=== PATIENT | male | born 1960 | race Caucasian/White ===

== ENCOUNTER → 2018-06-15 | Outpatient (CLI) | payer OTHER, SELFPAY ==
--- NOTE | 2018-06-15 13:50 | CT_ITS ---
STUDY: LOW DOSE CT LUNG CANCER SCREENING REASON FOR EXAM: Male, 58 years old. Current smoker. 80 pack-year smoking history. RADIATION DOSAGE (If Supplied By Facility): CTDIvol = ( 2.55 ) mGy, DLP = ( 88.69 ) mGycm TECHNIQUE: No contrast was administered. Low dose technique was utilized (average mAS-38 and kVp 120). 1.25 mm axial source images with a slice interval of 1.25-mm were reconstructed in lung windows. 2.5 mm axial source images with a slice interval of 2.5-mm were reconstructed in lung windows. 5.0 mm axial source images with a slice interval of 5.0-mm were reconstructed in soft tissue windows. Nodule measured using lung windows on PACS and/or independent workstation with automated measurement of minimum and maximum diameter. Nodule measurement reported as average diameter rounded to the nearest whole number. Growth is defined as an increase ins size of greater than 1.5 mm. COMPARISON: Chest, March 16, 2016. NODULES: Nodule #: 1 Density: Solid Lung location: Right upper lobe: 0.5 cm from pleura Location in series: Series Number: [id number] Image: 103 Size - D1 x D2 mm: 2 x 2 mm: 2 mm average diameter Margin: Smooth Shape: Rounded Calcification: Yes Fat: No Temporal comparison: No Total lung nodules (excluding granulomas): 0 Emphysema: There is mild diffuse emphysematous changes of the lungs. Endobronchial lesion: None Aorta: Minimal atherosclerotic changes of the thoracic aorta without aneurysm. Coronary arteries: There are coronary artery calcifications. Heart: Normal in size Pulmonary artery: Normal Mediastinal nodes: Not Other chest and abdominal findings: Minimal degenerative changes of the thoracic spine. CT/Low Dose CT Lung Screening IMPRESSION: Lung-RADS category 1 - Continue annual screening with LDCT in 12 months. IMPORTANT NOTES FOR USE: ACR Lung-RADS Version 1.0 Assessment Categories Release Date: June 25, 2013 Category: Coded 0-4 bases on nodule(s) with highest degree of suspicion. Negative screen is defined as categories 1 and 2; a positive screen is defined as categories 3 and 4. Category 3 and 4A nodules that are unchanged on interval CT should be coded as category 2, and individuals returned to screening in 12 months. Category 4X: Category 3 or 4 nodules with additional imaging findings that increase the suspicion of lung cancer, such as spiculation, GGN that doubles in size in 1 year, enlarged lymph notes, etc. Category Modifiers: S (significant finding unrelated to lung cancer) and C (prior history of treated lung cancer) may be added to the 0-4 Lung-RADS Electronically Signed: Elmer Mejía DO at 18:26 EDT Tel [phone], Service support ,
== END | disposition home or self-care (01) ==
LOC: CT 14:51
PROVIDERS: Family Provider Nurse Practitioner Family; PCP Nurse Practitioner Family; Referring Provider Nurse Practitioner Family; Visit Provider Nurse Practitioner Family
DX: Z12.2 Encounter for screening for malignant neoplasm of respiratory organs (principal); Z72.0 Tobacco use
CPT/HCPCS: G0297

== ENCOUNTER → 2018-07-11 16:50 | Outpatient (CLI) | payer OTHER, SELFPAY ==
--- NOTE | 2018-07-11 16:52 | CT_ITS ---
STUDY: CT SOFT TISSUE NECK WITH CONTRAST REASON FOR EXAM: Male, 58 years old. Two-month history of left sided neck pain. RADIATION DOSAGE (If Supplied By Facility): CTDIvol = ( 21.92 ) mGy, DLP = ( 711.51 ) mGycm TECHNIQUE: The patient was scanned in a multi-detector CT scanner. High resolution transaxial imaging was performed following intravenous administration of 100 IV Isovue 300. Sagittal and coronal images were reconstructed. Individualized dose optimization techniques were used for this CT. COMPARISON: None. FINDINGS: Normal bilateral parotid glands. Normal bilateral strip cleaner spaces. Normal bilateral parapharyngeal spaces. Normal bilateral carotid spaces. Normal bilateral sublingual and submandibular glands and spaces. Normal visualized nasopharynx. Normal retropharyngeal space. Normal perivertebral space. Normal visualized bilateral faucial tonsils. The visualized tongue, tongue base and oropharynx are normal. The visualized cervical lymph nodes (levels I-) are within normal size limits, and maintain normal morphology. There is no demonstrated solid or cystic mass lesion. There is no abnormal contrast enhancement. Normal epiglottis, bilateral vallecula and hypopharynx. The pre-epiglottic and paraglottic adipose spaces are normal. Normal visualized bilateral piriform sinuses, aryepiglottic folds, vocal cords, and arytenoid-cricoid articulations. Normal subglottic trachea. There is a 7.8 mm well-defined hypodensity in the midportion of the right lobe of the thyroid. This may represent a small colloid cyst. Normal visualized pulmonary apices. Opacification of the right maxillary sinus. Mucosal thickening along the inferior posterior aspect of the left maxillary sinus. There is multilevel degenerative changes of the cervical spine. CT/Soft Tissue Neck WITH Contrast IMPRESSION: 7.8 mm well-defined hypodensity in the right lobe of thyroid. No other abnormality is seen. Electronically Signed: Arnav Lemus, at 9:05 EDT , Service support ,
[2018-07-11 17:20] LABS: CREATININE FINGERSTICK 0.9 mg/dL (0.70-1.30); EGFR FINGERSTICK > 60.0000 mL/min (>60)
== END ==
PROVIDERS: Family Provider Nurse Practitioner Family; PCP Nurse Practitioner Family; Referring Provider Otolaryngology Otolaryngology/Facial Plastic Surgery; Visit Provider Otolaryngology Otolaryngology/Facial Plastic Surgery
DX: M54.2 Cervicalgia (principal)
CPT/HCPCS: 70491; Q9967

== ENCOUNTER → 2018-12-15 | Outpatient (CLI) | payer OTHER, SELFPAY ==
--- NOTE | 2018-12-15 16:57 | CT_ITS ---
STUDY: CT CHEST WITHOUT CONTRAST REASON FOR EXAM: Male, 58 years old. Lung nodule follow-up RADIATION DOSAGE (If Supplied By Facility): CTDIvol = ( 11.86 ) mGy, DLP = ( 465.12 ) mGycm TECHNIQUE: Transaxial imaging was performed without the administration of intravenous contrast material. Multiplanar coronal and sagittal images were reformatted. Individualized dose optimization techniques were used for this CT. COMPARISON: 06/15/2018 FINDINGS: 2 mm nodule in the anterior right upper lobe is stable since prior low-dose CT. No new pulmonary nodule. No localized groundglass opacities or groundglass opacity nodules. There is a nodule of the right thyroid lobe measuring 11 mm, grossly similar. There is no demonstrated pleural abnormality. Normal heart and pericardium. There are calcifications of the coronary arteries. Normal mediastinum. Normal hilar regions. Normal unenhanced pulmonary arteries. There is atherosclerotic calcification of the aortic arch with tortuosity and elongation of the aortic arch and descending thoracic aorta. There are multi-level degenerative changes of the thoracic spine. There is no demonstrated abnormality of the visualized upper abdomen. CT/Chest without Contrast IMPRESSION: 1. Stable 2 mm nodule in the right upper lobe. No new or enlarging pulmonary nodule. 2. An 11 mm right thyroid lobe nodules is grossly similar although better seen on the current exam. 3. Atherosclerosis including coronary arteries. Electronically Signed: Raul Beckford MD ([facility]) at 17:34 EDT , Service support ,
== END | disposition home or self-care (01) ==
LOC: CT 16:55
PROVIDERS: Family Provider Nurse Practitioner Family; PCP Nurse Practitioner Family; Referring Provider Internal Medicine Pulmonary Disease; Visit Provider Internal Medicine Pulmonary Disease
DX: R91.1 Solitary pulmonary nodule (principal)
CPT/HCPCS: 71250

== ENCOUNTER → 2019-01-17 09:55 | Outpatient (CLI) | payer OTHER, SELFPAY ==
--- NOTE | 2019-01-17 09:59 | NM_ITS ---
CLINICAL: 58-year-old male with history of thyroid nodularity. I-123 THYROID UPTAKE and SCAN COMPARISON: CT of the soft tissue neck report 07/11/2018 FINDINGS: The patient was administered a 290 uCi I-123 capsule by mouth. The 4-hour I-123 radioactive iodine thyroidal uptake was calculated to be 11.3 % (normal 5 to 25 %). The 24-hour I-123 radioactive iodine thyroidal uptake was calculated to be 26.5 % (normal 5 to 40 %). The I-123 thyroid scan demonstrates homogeneous radiopharmaceutical concentration throughout both lobes of a U-shaped thyroid gland. There are no colloidal parenchymal hypofunctioning cold nodules noted in either lobe of the thyroid gland. NM/Thyroid Uptake Single or Mult IMPRESSION: 1. NORMAL 4- and 24-hour I-123 radioactive iodine thyroidal uptakes. 2. The I-123 thyroid scan is consistent with stage I nodular colloid goiter secondary to the presence of isthmus radiopharmaceutical concentration. (Ana et al, J Nucl Med 32: 1455, 1990). 3. No hypofunctioning-cold nodules are identified. Electronically Signed: Quinton Hernández DO at 23:04 EST Tel , Service support ,
== END ==
PROVIDERS: Family Provider Nurse Practitioner Family; PCP Nurse Practitioner Family; Referring Provider Nurse Practitioner Family; Visit Provider Nurse Practitioner Family
DX: E04.1 Nontoxic single thyroid nodule (principal)
CPT/HCPCS: 78012; A9516

== ENCOUNTER → 2019-07-02 | Outpatient (CLI) | payer OTHER, SELFPAY ==
--- NOTE | 2019-07-02 10:30 | US_ITS ---
STUDY: THYROID ULTRASOUND REASON FOR EXAM: Male, 59 years old. NODULE SEEN ON RECENT CT TECHNIQUE: Ultrasound evaluation of the thyroid was performed with real-time and static payton-scale imaging. COMPARISON: Comparison is made with prior CT scan of the thorax dated December 15, 2018. FINDINGS: RIGHT LOBE: The right lobe of the thyroid gland is slightly enlarged and measures 5.1 cm x 2 cm x 2.2 cm. There is a homogeneous echotexture. 3 subcentimeters nodules are seen. The largest measures 9 mm x 8 mm x 6 mm. This is in the midportion of the lobe. Debris is seen within it. LEFT LOBE: The left lobe of the thyroid gland measures 4.6 cm x 1.6 x 1.2 cm. There is a homogeneous echotexture. There is a 3 mm x 2 mm x 3 mm solid/cystic nodule in the midpole. ISTHMUS: The isthmus measures 5.0 mm. The regional lymph nodes are normal. Incidental note is seen of bilateral carotid artery calcification. US/Thyroid IMPRESSION: Mild enlargement of the right lobe of the thyroid with the 3 subcentimeters nodules. The largest measuring 9 mm x 8 mm x 6 mm. This is a cyst with debris within. 3 mm x 3 mm x 2 mm solid/cystic nodule in the midportion of the left lobe of the thyroid. Electronically Signed: Arnav Lemus, at 11:15 EDT , Service support ,
== END | disposition home or self-care (01) ==
LOC: US 10:29
PROVIDERS: Family Provider Nurse Practitioner Family; PCP Nurse Practitioner Family; Referring Provider Nurse Practitioner Family; Visit Provider Nurse Practitioner Family
DX: E04.1 Nontoxic single thyroid nodule (principal)
CPT/HCPCS: 76536

== ENCOUNTER → 2019-07-20 10:50 | Outpatient (CLI) | payer OTHER, SELFPAY ==
[2019-07-20 11:59] LABS: T4 Free Direct 0.91 ng/dL (0.76-1.46); Thyroid Stim Hormone (TSH) 1.07 uIU/mL (0.358-3.74)
== END ==
LOC: LAB 10:53
PROVIDERS: PCP Nurse Practitioner Family; Referring Provider Nurse Practitioner Family; Visit Provider Nurse Practitioner Family
DX: E04.1 Nontoxic single thyroid nodule (principal)
CPT/HCPCS: 36415; 84439; 84443

== ENCOUNTER → 2019-12-17 | Outpatient (CLI) | payer OTHER, SELFPAY ==
--- NOTE | 2019-12-17 13:02 | CT_ITS ---
STUDY: LOW DOSE CT LUNG CANCER SCREENING REASON FOR EXAM: Male, 59 years old. Long history of smoking. Screening for lung cancer. RADIATION DOSAGE (If Supplied By Facility): CTDIvol = ( 3.02 ) mGy, DLP = ( 111.74 ) mGycm TECHNIQUE: No contrast was administered. Low dose technique was utilized (average mAS-38 and kVp 120). 1.25 mm axial source images with a slice interval of 1.25-mm were reconstructed in lung windows. 2.5 mm axial source images with a slice interval of 2.5-mm were reconstructed in lung windows. 5.0 mm axial source images with a slice interval of 5.0-mm were reconstructed in soft tissue windows. Nodule measured using lung windows on PACS and/or independent workstation with automated measurement of minimum and maximum diameter. Nodule measurement reported as average diameter rounded to the nearest whole number. Growth is defined as an increase ins size of greater than 1.5 mm. COMPARISON: None. NODULES: Stable 2 mm nodule in the right upper lobe. No new or enlarging pulmonary nodule. Stable 11 mm right thyroid lobe nodule is grossly similar although better seen on the current exam. There is hyperinflation of the lungs consistent with chronic obstructive lung disease (COPD). There is no demonstrated pleural abnormality. Normal heart and pericardium. Normal mediastinum. Normal hilar regions. Normal unenhanced pulmonary arteries. Normal aorta arch and descending thoracic aorta. Normal osseous structures. There is no demonstrated abnormality of the visualized upper abdomen. CT/Low Dose CT Lung Screening IMPRESSION: Lung-RADS category 2. Benign findings. No evidence of malignancy. Recommendation: Routine screening CT scan in one year. IMPORTANT NOTES FOR USE: ACR Lung-RADS Version 1.0 Assessment Categories Release Date: June 25, 2013 Category: Coded 0-4 bases on nodule(s) with highest degree of suspicion. Negative screen is defined as categories 1 and 2; a positive screen is defined as categories 3 and 4. Category 3 and 4A nodules that are unchanged on interval CT should be coded as category 2, and individuals returned to screening in 12 months. Category 4X: Category 3 or 4 nodules with additional imaging findings that increase the suspicion of lung cancer, such as spiculation, GGN that doubles in size in 1 year, enlarged lymph notes, etc. Category Modifiers: S (significant finding unrelated to lung cancer) and C (prior history of treated lung cancer) may be added to the 0-4 Lung-RADS Electronically Signed: Kaci Hawkins, at 4:39 EDT Tel , Service support ,
== END | disposition home or self-care (01) ==
LOC: CT 12:57
PROVIDERS: Family Provider Nurse Practitioner Family; PCP Nurse Practitioner Family; Referring Provider Internal Medicine Pulmonary Disease; Visit Provider Internal Medicine Pulmonary Disease
DX: R91.1 Solitary pulmonary nodule (principal); Z87.891 Personal history of nicotine dependence; Z12.2 Encounter for screening for malignant neoplasm of respiratory organs
CPT/HCPCS: G0297

== ENCOUNTER → 2020-01-04 14:55 | Outpatient (CLI) | payer OTHER, SELFPAY ==
--- NOTE | 2020-01-04 14:59 | US_ITS ---
STUDY: THYROID ULTRASOUND REASON FOR EXAM: Male, 59 years old. F/U NODULES TECHNIQUE: Ultrasound evaluation of the thyroid was performed with real-time and static payton-scale imaging. COMPARISON: 07/02/2019 FINDINGS: RIGHT LOBE: The right lobe of the thyroid gland measures 5.1 x 2 x 2.2 cm. There is a heterogeneous echotexture. There is a mixed cystic solid nodule in the mid pole measuring 1 x 0.9 x 0.7 cm demonstrating intranodular vascularity. There is a second solid hypoechoic nodule in the mid pole measuring 2.06 x 0.6 x 0.6 demonstrating. perinodular vascularity. LEFT LOBE: The left lobe of the thyroid gland measures 4.4 x 1.3 x 1.8 cm. There is a heterogeneous echotexture. There are no demonstrated solid, cystic or complex lesions. ISTHMUS: The isthmus measures 5 mm . The regional lymph nodes are normal. Previously noted third nodule in the right lobe on prior exam is not clearly identified on this current study nor is the previously noted tiny nodule in the left lobe. The 2 nodules in the right lobe on current exam are relatively stable since previous study US/Thyroid IMPRESSION: Stable appearance to 2 right lobar nodules. No new nodules identified Electronically Signed: Elton Kiran MD at 15:52 EST , Service support ,
== END ==
PROVIDERS: PCP Nurse Practitioner Family; Referring Provider Nurse Practitioner Family; Visit Provider Nurse Practitioner Family
DX: E04.1 Nontoxic single thyroid nodule (principal)
CPT/HCPCS: 76536

== ENCOUNTER → 2020-01-25 09:24 | Outpatient (CLI) | payer OTHER, SELFPAY ==
[2020-01-25 10:45] LABS: Hematocrit 40.7 % (40-54); Hemoglobin 13.5 g/dL (13.0-16.5); Mean Corp Hgb Conc 33.2 g/dL (32-36); Mean Corpuscular Hgb 31.8 pg (27.0-32.0); Mean Corpuscular Volume 95.8 fL (80-94); Mean Platelet Vol. 8.1 fl (6.2-12.0); Platelet Count 368 K/mm3 (150-450); RBC Distribution Width CV 13.9 % (11.6-14.6); RBC Distribution Width SD 49.3 fl (35.1-43.9); Red Blood Count 4.25 M/mm3 (4.6-6.2); White Blood Count 9.9 K/mm3 (4.4-11.0)
[2020-01-25 11:09] LABS: Hemoglobin A1c 5.3 % (3.8-5.6)
[2020-01-25 11:24] LABS: AST(SGOT) 27 U/L (15-37); Alanine Aminotransfer ALT/SGPT 36 U/L (16-61); Albumin, Serum 3.8 g/dL (3.2-5.0); Alkaline Phosphatase 81 U/L (45-117); Anion Gap 5 (5-15); BUN 18 mg/dL (7-18); BUN/Creat Ratio 20.5 RATIO (10-20); Calcium,Total 8.8 mg/dL (8.5-10.1); Chloride 98 mmol/L (98-107); Cholesterol 138 mg/dL (200); Creatinine, Serum 0.88 mg/dL (0.70-1.30); EST Glomerular Filtration Rate 94 mL/min (>60); Est Glom Filt Rate - Afr Amer 113 mL/min (>60); Globulin 3.8 g/dL (2.2-4.2); Glucose 125 mg/dL (74-106); High Density Lipoprotein 61 mg/dL; Potassium 3.6 mmol/L (3.5-5.1); Protein, Total 7.6 g/dL (6.4-8.2); Sodium Level 135 mmol/L (136-145); T4 Free Direct 1.12 ng/dL (0.76-1.46); Thyroid Stim Hormone (TSH) 1.28 uIU/mL (0.358-3.74); Triglycerides 42 mg/dL; Very Low Density Lipoprotein 8 mg/dL (5-40)
== END ==
PROVIDERS: PCP Nurse Practitioner Family; Referring Provider Nurse Practitioner Family; Visit Provider Nurse Practitioner Family
DX: E11.9 Type 2 diabetes mellitus without complications (principal); I10 Essential (primary) hypertension; E78.5 Hyperlipidemia, unspecified; E04.1 Nontoxic single thyroid nodule
CPT/HCPCS: 36415; 80053; 80061; 83036; 84439; 84443; 85027

== ENCOUNTER 2020-05-15 14:11 | Outpatient (RCR) | payer OTHER, SELFPAY ==
[2020-05-15] MEDS: COVID-19 VACC, MRNA(PFIZER)/PF 30 MCG/0.3 ML SYRINGE IM (16:00)
[2020-06-05] MEDS: COVID-19 VACC, MRNA(PFIZER)/PF 30 MCG/0.3 ML SYRINGE IM (12:16)
== END 2020-05-15 23:59 ==
LOC: IMMUN 14:11
PROVIDERS: PCP Nurse Practitioner Family; Referring Provider Family Medicine; Visit Provider Family Medicine
DX: Z23 Encounter for immunization (principal)
CPT/HCPCS: 0001A; 0002A; 91300

== ENCOUNTER → 2020-10-09 13:54 | Outpatient (CLI) | payer OTHER, SELFPAY ==
--- NOTE | 2020-10-09 13:56 | US_ITS ---
STUDY: THYROID ULTRASOUND REASON FOR EXAM: Male, 60 years old. THYROID NODULE TECHNIQUE: Ultrasound evaluation of the thyroid was performed with real-time and static payton-scale imaging. COMPARISON: 01/04/2020 FINDINGS: RIGHT LOBE: The right lobe of the thyroid gland measures 4.0 x 1.9 x 2.1 cm. There is a heterogeneous echotexture. Nodule 1: No change in the 12 x 10 x 7 mm mixed cystic and solid isoechoic wider than tall smoothly marginated nodule with no echogenic foci (TR 2) in the mid right lobe consistent with an adenoma. Nodule 2: No change in the 6 x 7 x 5 mm solid hypoechoic wider than tall ill-defined marginated nodule with no echogenic foci (TR 4) in the posterior right lobe consistent with a tiny adenoma. Nodule 3: No change in the 10 x 11 x 9 mm solid hypoechoic wider than tall ill-defined marginated nodule with no echogenic foci (TR 4) in the posterior right lobe and follow-up ultrasound is recommended in one year. LEFT LOBE: The left lobe of the thyroid gland measures 4.6 x 1.6 x 1.1 cm. There is a heterogeneous echotexture. There are no demonstrated solid, cystic or complex lesions. ISTHMUS: The isthmus measures 2 mm thick. . The regional lymph nodes are normal. US/Thyroid IMPRESSION: No change in thyroiditis and multiple small adenomas in the right lobe. Follow-up ultrasound is recommended in one year. Electronically Signed: Quinton Dowell MD at 10:03 EDT Tel , Service support ,
== END ==
PROVIDERS: PCP Nurse Practitioner Family; Referring Provider Nurse Practitioner Family; Visit Provider Nurse Practitioner Family
DX: E04.1 Nontoxic single thyroid nodule (principal)
CPT/HCPCS: 76536

== ENCOUNTER → 2020-12-02 10:58 | Outpatient (CLI) | payer OTHER, SELFPAY | PROVIDERS: PCP Nurse Practitioner Family; Referring Provider Physician Assistant Surgical; Visit Provider Physician Assistant Surgical | DX: Z11.52 Encounter for screening for COVID-19 (principal) | CPT/HCPCS: 87635; U0005; U0003 ==

== ENCOUNTER → 2020-12-31 12:48 | Outpatient (CLI) | payer OTHER, SELFPAY ==
--- NOTE | 2020-12-31 12:54 | CT_ITS ---
STUDY: LOW DOSE CT LUNG CANCER SCREENING REASON FOR EXAM: Male, 60 years old. TOBACCO USE. 2 packs per day for 47 years. RADIATION DOSAGE (If Supplied By Facility): CTDIvol = ( 3.02 ) mGy, DLP = ( 113.62 ) mGycm TECHNIQUE: No contrast was administered. Low dose technique was utilized (average mAS-38 and kVp 120). 1.25 mm axial source images with a slice interval of 1.25-mm were reconstructed in lung windows. 2.5 mm axial source images with a slice interval of 2.5-mm were reconstructed in lung windows. 5.0 mm axial source images with a slice interval of 5.0-mm were reconstructed in soft tissue windows. Nodule measured using lung windows on PACS and/or independent workstation with automated measurement of minimum and maximum diameter. Nodule measurement reported as average diameter rounded to the nearest whole number. Growth is defined as an increase ins size of greater than 1.5 mm. COMPARISON: Comparison is made with prior examination of 12/17/2019. NODULES: No suspicious nodules are seen at this time. Aorta: Mild degree of atherosclerotic plaque formation of the aortic arch. Coronary arteries: Coronary artery calcification. Heart: Unremarkable. Pulmonary artery: Unremarkable. Mediastinal nodes: Unremarkable. Other chest and abdominal findings: CT/Low Dose CT Lung Screening IMPRESSION: Lung-RADS category 2 - Continue annual screening with LDCT in 12 months. IMPORTANT NOTES FOR USE: ACR Lung-RADS Version 1.1 Assessment Categories Release Date: 2018 Category: Coded 0-4 bases on nodule(s) with highest degree of suspicion. Negative screen is defined as categories 1 and 2; a positive screen is defined as categories 3 and 4. Category 3 and 4A nodules that are unchanged on interval CT should be coded as category 2, and individuals returned to screening in 12 months. Category 4X: Category 3 or 4 nodules with additional imaging findings that increase the suspicion of lung cancer, such as spiculation, GGN that doubles in size in 1 year, enlarged lymph notes, etc. Category Modifiers: S (significant finding unrelated to lung cancer) Electronically Signed: Arnav Lemus MD at 14:49 EDT , Service support ,
== END ==
PROVIDERS: PCP Nurse Practitioner Family; Referring Provider Internal Medicine Pulmonary Disease; Visit Provider Internal Medicine Pulmonary Disease
DX: Z87.891 Personal history of nicotine dependence (principal); Z12.2 Encounter for screening for malignant neoplasm of respiratory organs
CPT/HCPCS: 71271

== ENCOUNTER → 2021-08-17 | Outpatient (CLI) | payer OTHER, SELFPAY ==
[2021-08-17 10:06] LABS: Hematocrit 40.9 % (40-54); Hemoglobin 14.7 g/dL (13.0-16.5); Mean Corp Hgb Conc 35.9 g/dL (32-36); Mean Corpuscular Hgb 32.7 pg (27.0-32.0); Mean Corpuscular Volume 91.1 fL (80-94); Mean Platelet Vol. 7.6 fl (6.2-12.0); Platelet Count 355 K/mm3 (150-450); RBC Distribution Width CV 13.4 % (11.6-14.6); RBC Distribution Width SD 45.1 fl (35.1-43.9); Red Blood Count 4.49 M/mm3 (4.6-6.2); White Blood Count 7.1 K/mm3 (4.4-11.0)
[2021-08-17 10:24] LABS: Hemoglobin A1c 5.3 % (3.8-5.6)
[2021-08-17 10:36] LABS: Vitamin B12 > 2000 pg/mL (211-911)
[2021-08-17 11:15] LABS: ALB/GLOB Ratio 1.1 RATIO (0.9-2.4); AST(SGOT) 27 U/L (15-37); Alanine Aminotransfer ALT/SGPT 37 U/L (16-61); Albumin, Serum 3.9 g/dL (3.2-5.0); Alkaline Phosphatase 76 U/L (45-117); Anion Gap 6 (5-15); BUN 16 mg/dL (7-18); BUN/Creat Ratio 17.7 RATIO (10-20); Calcium,Total 8.9 mg/dL (8.5-10.1); Chloride 92 mmol/L (98-107); Cholesterol 145 mg/dL (200); EST Glomerular Filtration Rate 90 mL/min (>60); Est Glom Filt Rate - Afr Amer 109 mL/min (>60); Globulin 3.7 g/dL (2.2-4.2); Glucose 123 mg/dL (74-106); High Density Lipoprotein 50 mg/dL; Potassium 3.4 mmol/L (3.5-5.1); Protein, Total 7.6 g/dL (6.4-8.2); Sodium Level 130 mmol/L (136-145); T4 Free Direct 1.04 ng/dL (0.76-1.46); Thyroid Stim Hormone (TSH) 1.11 uIU/mL (0.358-3.74); Triglycerides 89 mg/dL; Very Low Density Lipoprotein 18 mg/dL (5-40)
== END | disposition home or self-care (01) ==
LOC: LAB 09:40
PROVIDERS: PCP Nurse Practitioner Family; Referring Provider Nurse Practitioner Family; Visit Provider Nurse Practitioner Family
DX: E11.9 Type 2 diabetes mellitus without complications (principal); I10 Essential (primary) hypertension; E78.5 Hyperlipidemia, unspecified; R63.8 Other symptoms and signs concerning food and fluid intake; E04.1 Nontoxic single thyroid nodule; D53.9 Nutritional anemia, unspecified
CPT/HCPCS: 36415; 80053; 80061; 82607; 82746; 83036; 84439; 84443; 85027

== ENCOUNTER → 2021-08-27 | Outpatient (CLI) | payer OTHER, SELFPAY ==
--- NOTE | 2021-08-27 13:57 | US_ITS ---
STUDY: THYROID ULTRASOUND REASON FOR EXAM: Male, 61 years old. Thyroid nodules. TECHNIQUE: Ultrasound evaluation of the thyroid was performed with real-time and static payton-scale imaging. COMPARISON: Comparison is made with prior examination dated 10/09/2020. FINDINGS: RIGHT LOBE: The right lobe of the thyroid gland is enlarged and measures 5.5 cm x 2 cm x 2 cm. There is a heterogeneous echotexture. There is a 1 cm x 1 cm x 0.9 cm solid and cystic nodule in the mid right lobe. This is unchanged. A second nodule measuring 3 mm x 4 mm x 2 mm is seen in the midpole as well as a predominantly cystic nodule measuring 3 mm x 3 mm x 3 mm. LEFT LOBE: The left lobe of the thyroid gland measures 4.5 cm x 1.6 x 1.2 cm. There is a heterogeneous echotexture. A 4 mm x 4 mm x 2 mm cyst. ISTHMUS: The isthmus measures 2 mm. The regional lymph nodes are normal. US/Thyroid IMPRESSION: Stable 1 cm x 1 cm x 0.9 some solid and cystic nodule in the mid right lobe of the thyroid. Interval decrease in size of the cystic/hypoechoic nodules in the right lobe. Electronically Signed: Arnav Lemus MD at 15:21 EDT ,
== END | disposition home or self-care (01) ==
LOC: US 13:55
PROVIDERS: PCP Nurse Practitioner Family; Referring Provider Nurse Practitioner Family; Visit Provider Nurse Practitioner Family
DX: E04.1 Nontoxic single thyroid nodule (principal)
CPT/HCPCS: 76536

== ENCOUNTER → 2022-01-15 | Outpatient (CLI) | payer OTHER, SELFPAY ==
--- NOTE | 2022-01-15 15:04 | CT_ITS ---
STUDY: LOW DOSE CT LUNG CANCER SCREENING REASON FOR EXAM: Male, 61 years old. 80 pack-year history. Hypertension and diabetes. RADIATION DOSAGE (If Supplied By Facility): CTDIvol = ( 3.02 ) mGy, DLP = ( 108.35 ) mGycm TECHNIQUE: No contrast was administered. Low dose technique was utilized (average mAS-38 and kVp 120). 1.25 mm axial source images with a slice interval of 1.25-mm were reconstructed in lung windows. 2.5 mm axial source images with a slice interval of 2.5-mm were reconstructed in lung windows. 5.0 mm axial source images with a slice interval of 5.0-mm were reconstructed in soft tissue windows. COMPARISON: December 31, 2020. NODULES: Total lung nodules (excluding granulomas): 0 Emphysema: Mild emphysematous changes. Endobronchial lesion: None Aorta: Stable atherosclerotic changes without aneurysm. CORONARY ARTERIES: Stable coronary artery calcifications. Heart: Normal Pulmonary artery: Normal Mediastinal nodes: None Other chest and abdominal findings: Degenerative changes of the thoracic spine. CT/Low Dose CT Lung Screening IMPRESSION: Lung-RADS category 1 - Continue annual screening with LDCT in 12 months. IMPORTANT NOTES FOR USE: ACR Lung-RADS Version 1.1 Assessment Categories Release Date: 2018 Category: Coded 0-4 bases on nodule(s) with highest degree of suspicion. Negative screen is defined as categories 1 and 2; a positive screen is defined as categories 3 and 4. Category 3 and 4A nodules that are unchanged on interval CT should be coded as category 2, and individuals returned to screening in 12 months. Category 4X: Category 3 or 4 nodules with additional imaging findings that increase the suspicion of lung cancer, such as spiculation, GGN that doubles in size in 1 year, enlarged lymph notes, etc. Category Modifiers: S (significant finding unrelated to lung cancer) Electronically Signed: Elmer Mejía DO at 20:40 EST Reading Location ID and State: [address] [place] [address] Tel [phone], Service support ,
== END | disposition home or self-care (01) ==
LOC: CT 14:56
PROVIDERS: PCP Nurse Practitioner Family; Visit Provider Internal Medicine Pulmonary Disease
DX: Z87.891 Personal history of nicotine dependence (principal)
CPT/HCPCS: 71271

== ENCOUNTER → 2022-02-09 | Outpatient (CLI) | payer OTHER, SELFPAY ==
[2022-02-09 14:25] LABS: AST(SGOT) 23 U/L (15-37); Alanine Aminotransfer ALT/SGPT 29 U/L (16-61); Albumin, Serum 3.8 g/dL (3.2-5.0); Alkaline Phosphatase 85 U/L (45-117); Anion Gap 9 (5-15); BUN 20 mg/dL (7-18); BUN/Creat Ratio 19.8 RATIO (10-20); Chloride 89 mmol/L (98-107); Cholesterol 156 mg/dL (200); Creatinine, Serum 1.01 mg/dL (0.70-1.30); EST Glomerular Filtration Rate 79 mL/min (>60); Est Glom Filt Rate - Afr Amer 96 mL/min (>60); Globulin 3.7 g/dL (2.2-4.2); Glucose 139 mg/dL (74-106); High Density Lipoprotein 61 mg/dL; PSA,Total - Annual Screen 0.22 ng/mL (0.00-4.00); Potassium 3.3 mmol/L (3.5-5.1); Protein, Total 7.5 g/dL (6.4-8.2); Sodium Level 128 mmol/L (136-145); T4 Free Direct 1.06 ng/dL (0.76-1.46); Thyroid Stim Hormone (TSH) 1.26 uIU/mL (0.358-3.74); Triglycerides 58 mg/dL; Very Low Density Lipoprotein 12 mg/dL (5-40)
[2022-02-09 14:41] LABS: Hemoglobin A1c 5.6 % (3.8-5.6)
== END | disposition home or self-care (01) ==
LOC: LAB 09:50
PROVIDERS: PCP Nurse Practitioner Family; Visit Provider Nurse Practitioner Family
DX: E11.9 Type 2 diabetes mellitus without complications (principal); E78.5 Hyperlipidemia, unspecified; N40.0 Benign prostatic hyperplasia without lower urinary tract symptoms; E04.1 Nontoxic single thyroid nodule; I10 Essential (primary) hypertension
CPT/HCPCS: 36415; 80053; 80061; 83036; 84153; 84439; 84443; G0103

== ENCOUNTER → 2022-07-29 | Outpatient (CLI) | payer BC, SELFPAY ==
--- NOTE | 2022-07-29 13:01 | US_ITS ---
STUDY: THYROID ULTRASOUND REASON FOR EXAM: Male, 62 years old. Thyroid nodules. TECHNIQUE: Ultrasound evaluation of the thyroid was performed with real-time and static payton-scale imaging. COMPARISON: Comparison is made with prior study August 27, 2021. FINDINGS: RIGHT LOBE: The right lobe of the thyroid gland measures 4.8 cm x 1.7 cm x 2.1 cm. There is a heterogeneous echotexture. Stable 1 cm x 0.9 cm x 0.8 cm solid and cystic nodule in the midportion of the right lobe. Stable 6 mm x 6 mm x 6 mm hypoechoic solid nodule. LEFT LOBE: The left lobe of the thyroid gland measures 4.2 cm x 1.6 x 1.6 cm. There is a heterogeneous echotexture. There is a 2 mm x 4 mm x 2 mm cyst. This is unchanged. ISTHMUS: The isthmus measures 4 mm. The regional lymph nodes are normal. US/Thyroid IMPRESSION: Stable examination. Electronically Signed: Arnav Lemus MD at 11:17 EDT ,
== END | disposition home or self-care (01) ==
LOC: US 12:53
PROVIDERS: PCP Nurse Practitioner Family; Referring Provider Nurse Practitioner Family; Visit Provider Nurse Practitioner Family
DX: E04.1 Nontoxic single thyroid nodule (principal)
CPT/HCPCS: 76536

== ENCOUNTER → 2022-08-12 | Outpatient (CLI) | payer BC, SELFPAY ==
[2022-08-12 12:56] LABS: AST(SGOT) 26 U/L (15-37); Alanine Aminotransfer ALT/SGPT 32 U/L (16-61); Albumin, Serum 3.9 g/dL (3.2-5.0); Alkaline Phosphatase 83 U/L (45-117); Anion Gap 10 (5-15); BUN 19 mg/dL (7-18); BUN/Creat Ratio 19.3 RATIO (10-20); Calcium,Total 9.4 mg/dL (8.5-10.1); Chloride 87 mmol/L (98-107); Cholesterol 149 mg/dL (200); Creatinine, Serum 0.99 mg/dL (0.70-1.30); EST Glomerular Filtration Rate 81 mL/min (>60); Est Glom Filt Rate - Afr Amer 98 mL/min (>60); Globulin 4.1 g/dL (2.2-4.2); Glucose 126 mg/dL (74-106); High Density Lipoprotein 61 mg/dL; Potassium 3.2 mmol/L (3.5-5.1); Sodium Level 127 mmol/L (136-145); Triglycerides 43 mg/dL; Very Low Density Lipoprotein 9 mg/dL (5-40)
[2022-08-12 13:38] LABS: Hemoglobin A1c 5.4 % (3.8-5.6)
== END | disposition home or self-care (01) ==
PROVIDERS: PCP Nurse Practitioner Family; Referring Provider Nurse Practitioner Family; Visit Provider Nurse Practitioner Family
DX: I10 Essential (primary) hypertension (principal); E11.9 Type 2 diabetes mellitus without complications; E78.5 Hyperlipidemia, unspecified; E04.1 Nontoxic single thyroid nodule
CPT/HCPCS: 36415; 80053; 80061; 83036; 84443

== ENCOUNTER → 2023-03-02 | Outpatient (CLI) | payer BC, SELFPAY ==
[2023-03-02 13:19] LABS: AST(SGOT) 23 U/L (15-37); Alanine Aminotransfer ALT/SGPT 29 U/L (16-61); Alkaline Phosphatase 86 U/L (45-117); Anion Gap 9 (5-15); BUN 17 mg/dL (7-18); BUN/Creat Ratio 20.4 RATIO (10-20); Calcium,Total 8.6 mg/dL (8.5-10.1); Chloride 90 mmol/L (98-107); Cholesterol 164 mg/dL (200); Creatinine, Serum 0.83 mg/dL (0.70-1.30); EST Glomerular Filtration Rate 99 mL/min (>60); Est Glom Filt Rate - Afr Amer 119 mL/min (>60); Glucose 143 mg/dL (74-106); High Density Lipoprotein 64 mg/dL; PSA,Total - Annual Screen 0.22 ng/mL (0.00-4.00); Potassium 3.4 mmol/L (3.5-5.1); Sodium Level 129 mmol/L (136-145); Thyroid Stim Hormone (TSH) 1.52 uIU/mL (0.358-3.74); Triglycerides 45 mg/dL; Very Low Density Lipoprotein 9 mg/dL (5-40)
[2023-03-02 13:29] LABS: Hemoglobin A1c 5.4 % (3.8-5.6)
[2023-03-02 13:30] LABS: Microalbumin,Random Urine 69.8 mg/L (NO RANGE EST.); Microalbumin:Creatinine Ratio 94.2 mg/g CRE (<30 mg/g CRE)
== END | disposition home or self-care (01) ==
PROVIDERS: PCP Nurse Practitioner Family; Referring Provider Nurse Practitioner Family; Visit Provider Nurse Practitioner Family
DX: Z12.5 Encounter for screening for malignant neoplasm of prostate (principal); E11.9 Type 2 diabetes mellitus without complications; I10 Essential (primary) hypertension; E78.5 Hyperlipidemia, unspecified; N40.0 Benign prostatic hyperplasia without lower urinary tract symptoms; E04.1 Nontoxic single thyroid nodule
CPT/HCPCS: 36415; 80053; 80061; 82043; 82570; 83036; 84153; 84443; G0103

== ENCOUNTER → 2023-03-22 | Outpatient (CLI) | payer BC, SELFPAY ==
--- NOTE | 2023-03-22 15:08 | CT_ITS ---
STUDY: LOW DOSE CT LUNG CANCER SCREENING REASON FOR EXAM: Male, 62 years old. TOBACCO USE. The patient smoked 2 packs per day for 50 years. RADIATION DOSAGE (If Supplied By Facility): CTDIvol = ( 3.02 ) mGy, DLP = ( 107.59 ) mGycm TECHNIQUE: No contrast was administered. Low dose technique was utilized (average mAS-38 and kVp 120). 1.25 mm axial source images with a slice interval of 1.25-mm were reconstructed in lung windows. 2.5 mm axial source images with a slice interval of 2.5-mm were reconstructed in lung windows. 5.0 mm axial source images with a slice interval of 5.0-mm were reconstructed in soft tissue windows. COMPARISON: Comparison is made with prior study January 15, 2022. NODULES: No suspicious nodules are seen. Emphysema: Mild degree of emphysematous changes. Endobronchial lesion: None Aorta: Atherosclerotic plaque formation of the aortic arch. CORONARY ARTERIES: Coronary artery calcification is seen. Heart: Unremarkable Pulmonary artery: Unremarkable Mediastinal nodes: Small mediastinal lymph nodes. Other chest and abdominal findings: Degenerative changes of the thoracic vertebrae. CT/Low Dose CT Lung Screening IMPRESSION: Lung-RADS category 2 - Continue annual screening with LDCT in 12 months. IMPORTANT NOTES FOR USE: ACR Lung-RADS Version 1.1 Assessment Categories Release Date: 2018 Category: Coded 0-4 bases on nodule(s) with highest degree of suspicion. Negative screen is defined as categories 1 and 2; a positive screen is defined as categories 3 and 4. Category 3 and 4A nodules that are unchanged on interval CT should be coded as category 2, and individuals returned to screening in 12 months. Category 4X: Category 3 or 4 nodules with additional imaging findings that increase the suspicion of lung cancer, such as spiculation, GGN that doubles in size in 1 year, enlarged lymph notes, etc. Category Modifiers: S (significant finding unrelated to lung cancer) Electronically Signed: Arnav Lemus MD at 16:02 EST ,
--- OUTSIDE RECORDS SUMMARY | 2023-03-22 15:33 | XMS RPT_ITS | CCD ---
Author Name Unknown Address [address] [place] [address] Organization [facility] Care Team Providers Care [employer]ry Superintendant Name Role Phone PERNELL EDMOND APRN, CNP Primary Care Phys ician DANN ROMANO Attending Unavailable YODIT SANCHEZ Referring Unavailable PERNELL DEXTER Primary Care Unavailable PERNELL DEXTER Primary Care Unavailable YODIT SANCHEZ Attending Unavailable Allergies Allergy Classification Reported Allergen(s) Allergy Type Date of Onset Reaction(s) Facility (1 source) Bee/Wasp/Ant venom Allergy to substance Unknown (qualifier value) [facility] Work Phone: (1 source) zolpidem; Translations: [zolpidem] Drug Allergy Palpitations (finding), Chest pain (finding), Pulse fast (finding), Difficulty breathing (finding) [facility] Work Phone: Medications Current Medications Medication Drug Class(es) Dates Sig (Normalized) Sig (Original) amLODIPine 10 mg oral tablet (1 source) Dihydropyridine Calcium Channel Stephanie Start: 1 End: 2 amLODIPine 10 mg oral tablet Dose : 10 mg = 1 tab(s), Oral, qDay, Discontinue the previous 5mg dosing, # 30 tab(s), 6 Refill(s), Pharmacy: [facility], HTN, goal below 140/90, 175.3, cm, 08/08/20 16:13:00 EDT, Height, kg, 08/08/20 16:13:00 EDT, Dosing Weight Start Date: 08/08/20 Stop Date: 03/06/21 Status: Ordered Aspirin (1 source) Platelet Aggregation Inhibitor, Nonsteroidal Anti-inflammatory Drug Start: 9 aspirin 81 mg oral delayed release tablet Dose : 81 mg = 1 tab(s), Oral, Daily, 0 Refill(s) Start Date: 09/28/18 Status: Ordered EPINEPHrine (1 source) alpha-Adrenergic Agonist, beta-Adrenergic Agonist, Catecholamine Start: 0 EPINEPHrine 0.3 mg injectable kit Dose : 0.3 mg = 1 EA, Intramuscular, AsDirected, PRN Allergic reaction, # 1 EA, 1 Refill(s), Pharmacy: [facility], 170, cm, 03/22/19 15:47:00 EST, Height, kg, 03/22/19 15:47:00 EST, Dosing Weight Start Date: 07/26/19 Status: Ordered eszopiclone 3 mg oral tablet (1 source) Start: 1 End: 2 Lunesta 3 mg oral tablet Dose : 3 mg = 1 tab(s), Oral, qHS, Fill Date: 02/09/2021, # 30 tab(s), 2 Refill(s), Pharmacy: [facility], Insomnia Medication management, MANAGER EQUIPMENT re-newed 04/2020, 175.3, cm, 02/09/21 13:23:00 EST, Height, 71.4, kg, 02/09/21 13:23:00 E... Start Date: 02/09/21 Stop Date: 05/10/21 Status: Ordered finasteride 5 mg oral tablet (1 source) 5-alpha Reductase Inhibitor Start: 1 End: 2 finasteride 5 mg oral tablet Dose : 5 mg = 1 tab(s), Oral, qDay, # 30 tab(s), 6 Refill(s), Pharmacy: [facility], BPH without urinary obstruction, 175.3, cm, 08/08/20 16:13:00 EDT, Height, kg, 08/08/20 16:13:00 EDT, Dosing Weight Start Date: 08/08/20 Stop Date: 03/06/21 Status: Ordered hydroCHLOROthiazide 25 mg / triamterene 37.5 mg oral capsule (1 source) Potassium-sparing Diuretic, Thiazide Diuretic Start: 1 End: 2 take 1 capsule by mouth once daily hydrochlorothiazi de-triamterene 25 mg-37.5 mg oral capsule Dose = 1 cap(s), Oral, qDay, Discontinue the previous Rx for HCTZ, # 90 cap(s), 2 Refill(s), Pharmacy: [facility], HTN, goal below 140/90, 175.3, cm, 08/08/20 16:13:00 EDT, Height, kg, 08/08/20 16:13:00 EDT, Dosing Weight Start Date: 08/08/20 Stop Date: 05/05/21 Status: Ordered losartan potassium 100 mg oral tablet (1 source) Angiotensin 2 Receptor Stephanie Start: 1 End: 2 losartan 100 mg oral tablet Dose : 100 mg = 1 tab(s), Oral, qDay, X 90 day(s), # 90 tab(s), 2 Refill(s), 05/05/21 17:17:00 EST, Pharmacy: [facility], HTN, goal below 140/90, 175.3, cm, 08/08/20 16:13:00 EDT, Height, kg, 08/08/20 16:13:00 EDT, Dosing Weight Start Date: 08/08/20 Stop Date: 05/05/21 Status: Ordered lovastatin 20 mg oral tablet (1 source) HMG-CoA Reductase Inhibitor Start: 1 End: 2 lovastatin 20 mg oral tablet Dose : 20 mg = 1 tab(s), Oral, qDay, # 90 tab(s), 2 Refill(s), Pharmacy: [facility], Hyperlipidemia LDL goal Start Date: 08/08/20 Stop Date: 05/05/21 Status: Ordered metFORMIN hydrochloride 500 mg oral tablet (1 source) Biguanide Start: 1 End: 2 metFORMIN 500 mg oral tablet EXTENDED RELEASE Dose : 1,000 mg = 2 tab(s), Oral, qDay, # 180 tab(s), 2 Refill(s), Pharmacy: [facility], DM type 2, goal HbA1c Start Date: 08/08/20 Stop Date: 05/05/21 Status: Ordered sildenafil 100 mg oral tablet (1 source) Phosphodiesterase 5 Inhibitor Start: 9 Viagra 100 mg oral tablet See Instructions, 1 tab(s) Oral as needed, 0 Refill(s) Start Date: 09/28/18 Status: Ordered Problems Problem Classification Problem Date Documented Date Episodic/Chronic Chronic obstructive pulmonary disease and bronchiectasis (1 source) Chronic obstructive lung disease 09-28-2018 Chronic Diabetes mellitus without complication (1 source) Type 2 diabetes mellitus 03-08-2019 Chronic Disorders of lipid metabolism (1 source) Hyperlipidemia 09-28-2018 Chronic Essential hypertension (1 source) Hypertensive disorder 12-22-2018 Chronic Hyperplasia of prostate (1 source) Benign prostatic hypertrophy without outflow obstruction 09-26-2018 Chronic Miscellaneous mental health disorders (1 source) Chronic insomnia 09-26-2018 Chronic Other circulatory disease (1 source) H/O: heart disorder 09-28-2018 Episodic Other infections; including parasitic (1 source) H/O: chickenpox 09-28-2018 Episodic Other lower respiratory disease (1 source) H/O: respiratory disease 09-28-2018 Episodic Other screening for suspected conditions (not mental disorders or infectious disease) (1 source) Encounter for screening for malignant neoplasm of colon; Translations: [Special screening for malignant neoplasms, colon] Onset: 09-20-2022 Episodic Residual codes; unclassified (1 source) Hypersomnia 03-08-2019 Chronic Residual codes; unclassified (1 source) H/O: Disorder 09-28-2018 Episodic Residual codes; unclassified (1 source) Increased body mass index 08-08-2020 Episodic Thyroid disorders (1 source) Thyroid nodule 02-01-2020 Chronic Results Test Name Value Interpretation Reference Range Facil ity Encounters Encounter Date Encounter Type Care Provider Facility Start: 09-20-2022 ambulatory DANN ROMANO Facil ity:[facility] Start: 04-21-2022 End: 04-22-2022 ambulatory PERNELL DEXTER Facility:[facility] Start: 02-06-2021 End: 02-10-2021 Outreach Lab PERNELL DEXTER STAGECRAFT TEACHER - ASSOCIATE PROFESSOR OF ANTHROPOLOGY [facility] Procedures Date Procedure Procedure Detail Performing Clinician Start: 01-18-2013 Echocardiography ABELARDO DEXTER STAGECRAFT TEACHER - ASSOCIATE PROFESSOR OF ANTHROPOLOGY Repair of musculoten dinous cuff of shoulder PERNELL DEXTER STAGECRAFT TEACHER - ASSOCIATE PROFESSOR OF ANTHROPOLOGY Immunizations Immunization Date Immunization Notes Care Provider Cindy floyd 05-15-2020 SARS-CoV-2 mRNA (toericanameran) vaccine PERNELL DEXTER STAGECRAFT TEACHER - ASSOCIATE PROFESSOR OF ANTHROPOLOGY [facility] Payers Date Payer Category Payer Unknown [id number] Social History Date Type Detail Facility Start: 09-26-2018 Heavy tobacco smoker (f tiffany) [facility] Progress note 04-21-2022 Note Date & Type Note Facility 04-21-2022 Note HNO ID: [id number] Author: Yodit Sanchez PA-C Service: ? Author Type: Physician Neighborhood Aide Type: Progress Notes Filed: 04/26/2022 6:47 AM Note Text: HISTORY AND PHYSICAL Lili Demetrius Laurie 1960 REFERRING PHYSICIAN: Self CHIEF COMPLAINT: Consult (Colonoscopy consult) HPI: The patient is a 61 year old male referred for endoscopy. Lili notes no. Patient denies any change in bowel habits, weight changes, blood in stools, black tarry stools or abdominal pain. Denies family history of colon issues. The patient notes no upper GI complaints. Lili has undergone prior endoscopy, states last was approximately [address] Burger. Report not currently available for review. Patient does not recall any polyps. Patient is a smoker, approximately 2 packs per day. Denies chest pain, shortness of breath or recent hospitalizations. Denies problems with sedation in the past. PAST MEDICAL HISTORY Diagnosis Date Diabetic Hyperlipidemia Insomnia, unspecified Unspecified essential hypertension PAST SURGICAL HISTORY Procedure Laterality Date COLONOSCOPY [id number] Current Outpatient Medications Medication Sig finasteride (PROSCAR) 5 mg tablet Take 5 mg by mouth once daily. losartan (COZAAR) 100 mg tablet Take 100 mg by mouth once daily. triamterene-hydroCHLOROthiazide (DYAZIDE) 37.5-25 mg per capsule Take 1 capsule by mouth once daily. metFORMIN ER (GLUCOPHAGE XR) 500 mg 24 hr tablet Take 500 mg by mouth twice daily. MULTIVITAMIN ORAL Take by mouth once daily. sildenafil (VIAGRA) 100 mg ORAL tablet Take one(1) tablet 30-60 minutes before sexual intercourse as needed. lisinopril-hydrochlorothiazide 20-12.5 mg ORAL per tablet takes one daily. lovastatin 20 mg ORAL tablet takes one tab daily. peg 3350-Electrolytes (GOLYTELY) 236-22.74-6.74 gram ORAL suspension take as directed eszopiclone(LUNESTA 3 MG TAB) metFORMIN ER (GLUCOPHAGE XR) 750 mg 24 hr tablet takes one tab daily. No current facility-administered medications for this visit. ALLERGIES: Patient has no known allergies. PERSONAL HISTORY: Social History Tobacco Use Smoking status: Every Day Packs/day: 2.00 Types: Cigarettes Smokeless tobacco: Never Vaping Use Vaping Use: Never used Substance Use Topics Alcohol use: Yes Drug use: No FAMILY HISTORY: FAMILY HISTORY Problem Relation Age of Onset Cancer Father Hypertension Father Lipids Father Diabetes Mother REVIEW OF SYMPTOMS: The review of systems data was entered by the nurse and reviewed by sd Nursing Notes: Margaret Davalos RN 04/21/2022 1:48 PM Signed REVIEW OF SYSTEMS: General: The patient denies fatigue, denies weight loss, denies weight gain, denies feeling hot, and denies feelings of cold. Eyes: The patient denies glaucoma, denies eye injury/surgery, does not wear glasses or contacts. Ear/Nose/Throat: The patient denies allergies, denies hayfever, denies ear infections, and NOTES bloody noses. Cardiovascular: The patient denies chest pain, denies heart disease, NOTES high blood pressure,denies cardiac stent, denies prior heart attack, denies irregular heart beat, denies high cholesterol, denies poor circulation, denies heart failure, other cardiac issues, denies claudication, denies cold feet, denies peripheral arterial stent. Respiratory: The patient denies tuberculosis, denies pneumonia, NOTES frequent cough, denies pulmonary embolism, denies shortness of breath, and denies coughing up blood. Gastrointestinal: The patient denies difficulty swallowing, denies acid reflux, denies ulcers, denies vomiting, denies jaundice/hepatitis, denies gallbladder problems, denies black or tarry stools, denies hemorrhoids, denies bleeding from rectum, denies diverticulitis, denies constipation, denies diarrhea, denies loss of stool control, and denies hernias. Kidney/Bladder: The patient denies kidney stones, denies urine infections, and denies bloody urine. Skin: The patient denies a history of skin cancer, denies bleeding/changing moles, and denies a history of skin rash. Neurologic: The patient denies a history of epilepsy/convulsions, denies headaches, denies head/spinal injuries, and denies stroke/TIA. Psychiatric: The patient denies psychiatric medications, denies depression, and denies voices, denies substance abuse. Endocrine: The patient denies thyroid disorders, denies diabetes, and denies hormonal problems. Hematologic: The patient denies a history of bruising, denies bleeding, and denies anemia, denies blood clots. Infections: The patient denies a history of measles and mumps, denies rheumatic fever, and denies sexually transmitted diseases. Musculoskeletal: The patient denies back pain/injury, denies back problems, denies sciatica, NOTES knee/foot trouble, denies arthritis, or denies gout. When was patient's last Mammogram screening? N/A Last Colonoscopy: 2009 or 2010 Margaret Davalos RN (more content not included)... [facility] Evaluation + Plan note LaboratoryRadiology Note Date & Type Note Facility Evaluation + Plan note Future Appointments Appointment Date:02/12/2021 10:40:00 AM Scheduled Provider:PERNELL DEXTER APRN, CNP Location:[facility] Appointment Type:PC OV Follow Up Appointment Date:05/08/2021 10:20:00 AM Scheduled Provider:PERNELL DEXTER APRN, CNP Location:[facility] Appointment Type:PC OV Controlled Medication Future Scheduled TestsProstate Specific Antigen 05/29/20XR Finger 3rd Digit 3 Views Left 05/20/20US Thyroid 05/01/20 [facility] Hospital course Narrative Note Date & Type Note Facility Hospital course Narrative No data available for this section [facility] Hospital Discharge instructions Note Date & Type Note Facility Hospital Discharge instructions No data available for this section [facility] Summary Purpose Family History No Family History Records FoundNo Family History Records FoundNo Family History Records FoundNo Family History Records Found Advance Directives No Advanced Directives Records FoundNo Advanced Directives Records FoundNo Advanced Directives Records FoundNo Advanced Directives Records Found Additional Source Comments (unrecognized sect ion and content) No Status Records FoundNo Status Records FoundNo Status Records FoundNo Status Records Found INFORMATION SOURCE (unrecogn ized section and content) DATE CREATED AUTHOR AUTHOR'S ORGANIZ ATION 06/28/2021 [facility] DATE CREATED AUTHOR AUTHOR'S ORGANIZ ATION 09/20/2022 [facility] DATE CREATED AUTHOR AUTHOR'S ORGANIZ ATION 10/02/2022 [facility] FOR RECORDS PERTAINING TO PATIENTS WHO ARE OR HAVE BEEN ENROLLED IN A CHEMICAL DEPENDENCY/SUBSTANCEABUSE PROGRAM, SOME INFORMATION MAY BE OMITTED. This clinical summary was aggregated from multiple sources. Caution should be exercised in using it in the provision of clinical care. This summary normalizes information from multiple sources, and as a consequence, information in this document may materially change the coding, format and clinical context of patient data. In addition, data may be omitted in some cases. CLINICAL DECISIONS SHOULD BE BASED ON THE PRIMARY CLINICAL RECORDS. [facility] [email or web address] [facility]. provides no warranty or guarantee of the accuracy or completeness of information in this document.
== END | disposition home or self-care (01) ==
LOC: CT 15:05
PROVIDERS: PCP Nurse Practitioner Family; Referring Provider Nurse Practitioner Family; Visit Provider Nurse Practitioner Family
DX: J44.9 Chronic obstructive pulmonary disease, unspecified (principal); Z72.0 Tobacco use
CPT/HCPCS: 71271

== ENCOUNTER → 2024-04-27 | Outpatient (CLI) | payer BC, SELFPAY ==
[2024-04-27 14:00] LABS: Hemoglobin A1c 5.6 % (<=5.6)
[2024-04-27 14:07] LABS: ALB/GLOB Ratio 1.6 RATIO (0.9-2.4); AST(SGOT) 28 U/L (<=37); Alanine Aminotransfer ALT/SGPT 25 U/L (<=46); Albumin, Serum 4.5 g/dL (3.4-4.8); Alkaline Phosphatase 82 U/L (40-129); Anion Gap 12 (5-15); BUN 15 mg/dL (4-19); BUN/Creat Ratio 18.9 RATIO (10-20); Calcium 9.3 mg/dL (7.6-11.0); Carbon Dioxide 29.2 mmol/L (22.0-29.0); Chloride 88 mmol/L (96-108); Cholesterol 153 mg/dL (<=200); EST Glomerular Filtration Rate 99 (>60); Globulin 2.8 g/dL (2.2-4.2); Glucose 129 mg/dL (70-99); High Density Lipoprotein 63 mg/dL; Low Density Lipoprotein Calc. 80 mg/dL; PSA,Total - Annual Screen 0.18 ng/mL (0.02-4.00); Potassium 3.5 mmol/L (3.3-5.1); Protein, Total 7.3 g/dL (5.9-8.4); Sodium Level 129 mmol/L (133-145); Total Bilirubin 0.44 mg/dL (0.00-1.30); Triglycerides 49 mg/dL; Very Low Density Lipoprotein 10 mg/dL (5-40); cholesterol:hdl ratio screen 2.41
== END | disposition home or self-care (01) ==
LOC: LAB 11:57
PROVIDERS: PCP Nurse Practitioner Family; Referring Provider Nurse Practitioner Family; Visit Provider Nurse Practitioner Family
DX: Z12.5 Encounter for screening for malignant neoplasm of prostate (principal); E11.9 Type 2 diabetes mellitus without complications; Z13.220 Encounter for screening for lipoid disorders
CPT/HCPCS: 36415; 80053; 80061; 83036; 84153; G0103

== ENCOUNTER → 2024-05-31 | Outpatient (CLI) | payer MEDICARE, BC, SELFPAY ==
--- NOTE | 2024-05-31 11:54 | US_ITS ---
PROCEDURE: THYROID 05/31/2024 REASON FOR EXAM: NODULE History of thyroid nodules. TECHNIQUE: Sonogram of the thyroid was obtained. COMPARISON: Comparison is made with prior study dated July 29, 2022. FINDINGS: Right thyroid lobe measures 5.4 cm x 2 cm x 2.4 cm. Left thyroid lobe measures 3.9 cm x 1.5 cm x 1.5 cm. Isthmus thickness is3 mm. Thyroid Size: Mild enlargement of the right lobe of the thyroid. Background Echotexture: Heterogeneous Thyroid Nodules: Stable 1.1 cm x 0.9 cm x 0.7 cm solid and cystic nodule in the mid right lobe of the thyroid. Stable subcentimeter cysts. Other: US/Thyroid IMPRESSION: OVERALL FINAL ASSESSMENT: TI-RADS 2 normal thyroid gland (no nodules). Reading Location: [place] [address]
--- NOTE | 2024-05-31 11:57 | CT_ITS ---
PROCEDURE: LOW DOSE CT LUNG SCREENING 05/31/2024 REASON FOR EXAM: LUNG CANCER SCREENING Current smoker. 2 packs per day for 50 years. COPD. TECHNIQUE: Low Dose CT Lung screening without contrast. Coronal and Sagittal reconstruction series were provided. One or more dose reduction techniques were used (e.g., Automated exposure control, adjustment of the mA and/or kV according to patient size, use of iterative reconstruction technique). REFERENCE LINK: [employer] Lung-RADS RADIATION DOSE SUMMARY: CTDlvol: 1.59 mGy DLP: 55.79 mGycm COMPARISON: None. FINDINGS: PULMONARY NODULES: (Only nodules >3mm are reported) Nodules described below are on series 1 unless otherwise specified. Pulmonary Nodules: No suspicious nodules are seen. Hardware:None Lymph Nodes:No lymph nodes are present. Heart and Vasculature:Coronary artery calcifications are noted.Atherosclerotic calcifications of the thoracic aorta. Thoracic aorta and pulmonary arteries have normal contours; noncontrast technique limits evaluation. Coronary Artery Calcifications: Present Lungs and Airways: Mild emphysematous changes are present. Pleura:Unremarkable Upper Abdomen:Unremarkable Bones:Degenerative changes of the thoracic spine. CT/Low Dose CT Lung Screening IMPRESSION: Mild emphysematous changes. Coronary artery calcification (CAC) is is present Lung-RADS Category: 2 BENIGN (BASED ON IMAGING FEATURES OR INDOLENT BEHAVIOR). RECOMMEND 12-MONTH SCREENING LDCT. Other Significant Findings: None. Reading Location: [place] [address]
== END | disposition home or self-care (01) ==
LOC: CT 11:49
PROVIDERS: PCP Nurse Practitioner Family; Referring Provider Nurse Practitioner Family; Visit Provider Nurse Practitioner Family
DX: Z12.2 Encounter for screening for malignant neoplasm of respiratory organs (principal); F17.210 Nicotine dependence, cigarettes, uncomplicated; E04.1 Nontoxic single thyroid nodule
CPT/HCPCS: 71271; 76536

== ENCOUNTER → 2024-10-30 | Outpatient (CLI) | payer MEDICARE, BC, SELFPAY ==
[2024-10-30 11:37] LABS: Hematocrit 42.5 % (40-54); Hemoglobin 15.3 g/dL (13.0-16.5); Mean Corp Hgb Conc 36.0 g/dL (32-36); Mean Corpuscular Volume 90.8 fL (80-94); Mean Platelet Vol. 7.9 fl (6.2-12.0); Platelet Count 371 K/mm3 (150-450); RBC Distribution Width CV 13.3 % (11.6-14.6); RBC Distribution Width SD 44.6 fl (35.1-43.9); Red Blood Count 4.68 M/mm3 (4.6-6.2); White Blood Count 9.6 K/mm3 (4.4-11.0)
[2024-10-30 12:17] LABS: Creatinine, Urine (random) 79.60 mg/dL (39.00-259.00); Microalbumin,Random Urine 57.7 mg/L (<20 mg/L)
[2024-10-30 12:29] LABS: AST(SGOT) 27 U/L (<=37); Alanine Aminotransfer ALT/SGPT 25 U/L (<=46); Albumin, Serum 4.6 g/dL (3.4-4.8); Alkaline Phosphatase 86 U/L (40-129); Anion Gap 13 (5-15); BUN 17 mg/dL (4-19); BUN/Creat Ratio 17.1 RATIO (10-20); Calcium,Total 9.3 mg/dL (7.6-11.0); Carbon Dioxide 28.7 mmol/L (21.0-32.0); Chloride 88 mmol/L (98-108); Cholesterol 158 mg/dL (<=200); Globulin 3.1 g/dL (2.2-4.2); Glucose 148 mg/dL (70-99); Low Density Lipoprotein Calc. 83 mg/dL; Potassium 3.7 mmol/L (3.3-5.1); Triglycerides 65 mg/dL; Very Low Density Lipoprotein 13 mg/dL (5-40); cholesterol:hdl ratio screen 2.53
== END | disposition home or self-care (01) ==
PROVIDERS: PCP Nurse Practitioner Family; Referring Provider Nurse Practitioner Family; Visit Provider Nurse Practitioner Family
DX: I10 Essential (primary) hypertension (principal); J44.9 Chronic obstructive pulmonary disease, unspecified; E11.9 Type 2 diabetes mellitus without complications; E78.5 Hyperlipidemia, unspecified; E04.1 Nontoxic single thyroid nodule
CPT/HCPCS: 36415; 80053; 80061; 82043; 82570; 83036; 84443; 85027